=== PATIENT | female | born 1950 | race Caucasian/White ===

== ENCOUNTER 2016-08-20 16:26 | Emergency (ER) | payer MEDICARE, OTHER ==
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
== END 2016-08-20 17:40 | disposition home or self-care (01) ==
LOC: ER 16:26
DX: S13.9XXA Sprain of joints and ligaments of unspecified parts of neck, initial encounter (principal); Z90.710 Acquired absence of both cervix and uterus; V43.62XA Car passenger injured in collision with other type car in traffic accident, initial encounter